=== PATIENT | female | born 1930 | race Caucasian/White ===

== ENCOUNTER → 2017-03-18 | Outpatient (CLI) | payer OTHER ==
[~2017-03-18] MED LIST: ATEN50TA8 PO; BENA40TA6 PO; FESO4TAB PO; HYDRTAB8 PO; IPRA0.03 INH; LEVO100T84 PO
[2017-03-18 13:20] LABS: URINE APPEARANCE TURBID (CLEAR); URINE BILIRUBIN NEG (NEG); URINE COLOR YELLOW; URINE EPITHELIAL CELL AUTO >30 /lpf (0-5); URINE NITRITE NEG (NEG); URINE PH 5.5 (4.5-7.5); URINE SPECIFIC GRAVITY 1.013 (1.000-1.030); UROBILINOGEN NEG (NEG)
[2017-03-18 13:33] LABS: MANUAL MICROSCOPIC REQUIRED? NO; REVIEW REQ? NO
== END | disposition home or self-care (01) ==
LOC: C.LABSPEC 12:15
PROVIDERS: ATTEND Internal Medicine Infectious Disease
DX: R32 Unspecified urinary incontinence (principal); N39.0 Urinary tract infection, site not specified

== ENCOUNTER 2018-01-26 07:47 | Day surgery (SDC) | payer OTHER ==
--- NOTE | 2018-01-25 10:26 | History and Physical ---
History & Physical Date of Service January 25, 2018. History & Physical 87-year-old female presents to the office for new patient evaluation with history of abnormal CT scan. PMHx includes: History of recurrent urinary tract infection and urinary incontinence. She is lifelong nonsmoker with exposure to significant secondhand exposure through her times 50 years. 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 She denies any history of pneumonia, hospitalization for respiratory failure, PE or DVT. She reports interval 42 she was diagnosed with asthma but she cannot recall any details of her symptoms and states that she believes that they resolved. She states that she was never prescribed any inhalers in the past. More recently patient was seen by her primary care physician October 2017 with approximately 6 month history of shortness of breath with exertion such as ambulating steps and doing housework. She reports symptoms tend to get worse over the preceding winter. She reports that triggers include walking quickly and ambulating her basement steps carrying laundry. she denies any associated chest pain, pleuritic pain or wheezing. She does report history of cough typically in the mornings associated rhinorrhea which resolved throughout the day. Patient workup included a chest x-ray followed by CT of the chest. The report and images for this study were reviewed and as below: CT 11/11/2017 describes scattered small mediastinal lymph nodes. Large airways are limited by motion artifact however appear patent. There are mild bilateral bronchiectatic changes with peribronchial thickening consistent with chronic airway inflammation. Multiple areas of air trapping are present throughout both lungs with areas of interstitial thickening and inflammation. The most prominent in the posterior lower lobes and right middle lobe. As above patient denies any personal history of tobacco use. She reports heavy secondhand exposure through her who smoked for approximately 50 years. She is a lifelong [place] resident with the exception of living for 1 and half years in [place] and [place]. She currently lives independently and has 3 dogs in her home. There is no mold or mildew. Her home is not been tested for Radon and she states her beauty salon had been located in her basement. Heat is electric. Patient denies any history of alcohol use. She denies any family history of lung disease. She does report personal history of breast cancer diagnosed 5-6 years ago treated with lumpectomy. Patient reports history of significant allergies and underwent allergy shots and testing approximately 20 years ago. She reports occasional symptoms of heartburn however states that this occurs only when she eats out and typically eats only bland foods when at home. Occupational History: Review of Systems Constitutional: negative. Eyes: negative. ENT: negative. Cardiovascular: no chest pain, no palpitations and no lower extremity edema. Respiratory: shortness of breath during exertion, but no shortness of breath, no cough, no orthopnea, no wheezing and no PND. Gastrointestinal: heartburn, but as noted in HPI and no abdominal pain. Hematologic/Lymphatic: negative. PmHx: 1. Chronic rhinitis 2. Bronchiectasis 3. History of breast carcinoma 4. Urinary incontinence 5. Family History 1. No pertinent family history Social History Never smoker Current Meds 1. Amlodipine Besy-Benazepril HCl - 5-10 MG Oral Capsule; 2. Aquasol A SOLN 3. Artificial Tears SOLN 4. Bentyl 10 MG Oral Capsule 5. Centrum Adults Oral Tablet; TAKE 1 TABLET DAILY 6. Cyanocobalamin 1000 MCG TABS 7. Estradiol 1 MG Oral Tablet; 8. FentaNYL PT72; 9. Flonase 50 MCG/ACT SUSP; 10. Hydrocodone-Acetaminophen TABS; 11. Levothyroxine Sodium TABS; 12. Methenamine Hippurate 1 GM Oral Tablet; Allergies 1. Penicillins Vital Signs Weight: 172 lb 4 oz BMI Calculated: 33.64 BSA Calculated: 1.75 Blood Pressure: 140 / 70, LUE, Sitting Temperature: 36.8 C, Oral Heart Rate: 63 Respiration Quality: Normal Respiration: 14 O2 Saturation: 96, RA FiO2: 21% FiO2, RA Constitutional: Well developed, well nourished elderly female. No acute distress. Head: + facial symmetry Eyes: EOMi, PERRLA, no conjunctival injection Mouth: Moist mucous membranes. No erythema, exudate, or post nasal gtt Neck: Trachea midline. No adenopathy or masses Respiratory: Non-labored respirations. No wheeze, rales or rhonchi. No clubbing or cyanosis. Cardiovascular: RRR, no MRG. +2 radial pulses. <1s capillary refill. Abdomen: soft, active bowel sounds Integumentary: no rashes, or ecchymosis MSK/Extremities: Moving and developed symmetrically. No peripheral edema. No calf tenderness. Neurologic: A&O, data recall in-tact. Appropriate affect.
[~2018-01-26] VITALS: Ht 152.4 cm; Wt 75.0 kg
[2018-01-26 08:23] LABS: BASO % 0.6 %; BASO ABS # 0.05 K/uL (0-0.2); EOS % 3.3 %; EOS ABS # 0.26 K/uL (0-0.5); HEMATOCRIT 37.7 % (37-47); HEMOGLOBIN 12.8 g/dL (12.0-16.0); IG# 0.02 K/uL (0.00-0.02); LYMPH % 24.1 %; LYMPH ABS # 1.91 K/uL (1.2-3.4); MEAN CELL VOLUME 92.2 fL (80-100); MEAN CORPUSCULAR HEMOGLOBIN 31.3 pg (25-34); MEAN PLATELET VOLUME 9.9 fL (7.4-10.4); MONO ABS # 0.71 K/uL (0.11-0.59); NEUT % 62.7 %; NEUT ABS # 4.98 K/uL (1.4-6.5); PLATELET COUNT 214 K/uL (130-400); RED CELL DISTRIBUTION WIDTH SD 44.1 fL (36.4-46.3); WHITE BLOOD COUNT 7.93 K/uL (4.8-10.8)
[2018-01-26] MEDS ORDERED: FNTTP50 TD (08:26)
[2018-01-26] MEDS ORDERED: MULT-1092 (08:27)
[2018-01-26] MEDS ORDERED: ASPI81TA28 PO (08:27)
[2018-01-26 08:30] VITALS: BP 165/85; PULSE 75; TEMP 36.6; O2SAT 96; Ht 152.4 cm; Wt 75.0 kg
[2018-01-26 08:33] LABS: INR 1.1 (0.9-1.1); PTT PATIENT 26.8 SECONDS (21.0-31.0)
[2018-01-26 08:41] LABS: BLOOD UREA NITROGEN 27 mg/dl (7-18); CALCIUM 9.2 mg/dl (8.5-10.1); CARBON DIOXIDE 26 mmol/L (21-32); CREATININE 1.27 mg/dl (0.60-1.20); GLUCOSE 99 mg/dl (70-99); POTASSIUM 3.4 mmol/L (3.5-5.1); SODIUM 138 mmol/L (136-145)
[2018-01-26] MEDS ORDERED: NURSING VERBAL MED ORDER ONE (09:00)
--- NOTE | 2018-01-26 09:15 | History & Physical Bridge Note ---
H&P Re-Evaluation Bridge Note: I have examined the patient, reviewed the History & Physical and in the interval since the performance of the History & Physical I have noted the following changes of clinical significance: No changes noted
--- NOTE | 2018-01-26 09:16 | Pre Sedation Assessment ---
Pre Sedation Assessment General Date of Sedation: January 26, 2018. Vital Signs Past 12 Hours Date Time Temp Pulse Resp B/P (MAP) Pulse Ox O2 Delivery O2 Flow Rate FiO2 01/26/18 08:30 36.6 75 18 165/85 (111) 96 Room Air Review Cardiovascular: + systolic murmur Lungs: + rales Pre-Sedation Airway Assessment Smoking Status: Never Smoker Hx of Sleep Apnea: No Hx of difficult intubation: No Short Thick Neck: No Thyro-mental Distance: > 3 Finger Breadths Oral Cavity: Dentures Mallampati Classification: Class II ASA Classification: Class II NPO Status Date of Last Intake of Fluids: January 25, 2018 Time of Last Intake of Fluids: 1899 Date of Last Intake of Solids: January 25, 2018 Time of Last Intake of Solids: 1899 Procedure Planning Contraindications for Sedation: None Current Medications Reviewed: Yes Notes The planned sedation has been discussed with the patient. Informed Consent was obtained. I have identified the patient, determined the appropriateness of sedation and have assessed the patient immediately prior to the procedure. All medicine(s) and interventions are by my order.
[2018-01-26] MEDS ORDERED: SODIUM CHLORIDE 0.9% 1000ML 1,000 ML IV SCH (09:45)
--- NOTE | 2018-01-26 09:52 | Post Sedation Assessment ---
Post Sedation Assessment General Date of Sedation January 26, 2018. Vital Signs: Vital Signs Past 12 Hours Date Time Temp Pulse Resp B/P (MAP) Pulse Ox O2 Delivery O2 Flow Rate FiO2 01/26/18 09:50 84 18 119/67 97 Mask 6 01/26/18 09:45 84 17 131/67 99 Mask 6 01/26/18 09:40 82 17 139/62 99 Mask 6 01/26/18 09:35 86 19 170/67 96 Mask 6 01/26/18 09:30 82 18 144/74 96 Mask 6 01/26/18 09:25 84 18 156/65 96 Room Air 01/26/18 09:20 84 16 156/65 96 Room Air 01/26/18 08:30 36.6 75 18 165/85 (111) 96 Room Air Post Procedure Recovery Score Activity: (2) Moves 4 extremities * Respiration: (2) Deep breath/cough Circulation: (2) +/-20% PreAnes Value Consciousness: (2) Fully Awake Oxygen Saturation: (1) O2 needed for >90% Post Anesthesia Score: 9 Discharge Sedation Level of Care: Fast Track Phase II Post Sedation Plan On clinical assessment, the patient appears to have tolerated the sedation without complications. Patient is recovering as anticipated. Patient will continue to be monitored by nursing and may be discharged when sedation discharge criteria are met per below protocol. Upon Completions of procedure and additional 15 minutes continue every 5 minute vital signs and the P.A.R. score; then discharge to a Phase I or Fast Track to Phase II per the following guidelines: * Discharge Patient to appropriate Phase II area if PAR is 8 or greater or return to pre- procedure baseline. The post - procedure orders will be as directed. * If PAR score is less than 8 or not return to pre-procedure baseline then patient will follow Phase I monitoring till PAR is reached for Phase II. The Phase I may be done in procedure room or may call to secure a Phase I area. * If naloxone or flumazenil are used for reversal, hold in Phase I for an additional 60 -120 minutes before discharge to Phase II. Please call the Sedation Physician to re-evaluate and complete post-note for discharge to Phase II area. Do NOT discharge from procedure sedation or Phase 1 until post- sedation evaluation note is complete by procedure /sedation MD Sedation Discharge Instructions to be given to the patient at discharge to home.
[2018-01-26] MEDS ORDERED: MIDAZOLAM HCL 5 MG/ML 1 ML VIAL IV ONE (09:53)
[2018-01-26] MEDS ORDERED: FENTANYL CITRATE INJ 50 MCG/1 ML 2 ML VIAL IV ONE (09:53)
[2018-01-26] MEDS ORDERED: LIDOCAINE VISCOUS 2% 100ML TOP ONE (09:53)
[2018-01-26] MEDS ORDERED: LIDOCAINE 4% INH SOLN 4 ML BTL TOP ONE (09:53)
--- NOTE | 2018-01-26 09:56 | Bronchoscopy Procedure Note ---
Bronchoscopy Procedure Note Procedure: Bronchoscopy, conscious sedation, bronchial lavage Consent: Obtained through the patient placed into the chart Pre-procedural diagnosis: Interstitial lung disease Post-procedural diagnosis: Rhinitis and interstitial lung disease Start time: 939 End time: 947 Total time: 8 minutes Analgesia: 2% liquid lidocaine: Via nebulizer 4% gel lidocaine: Via right naris 2% liquid lidocaine: Via bronchoscopy Sedation: Versed IV: 3mg Fentanyl IV: 50g Procedure: The Olympus video bronchoscope was used for this procedure and passed down through the right naris but then removed and passed out to the left naris Right Naris: Some mild erythema but notable edema unable to pass the flexible scope without discomfort to the patient Left Naris: Some mild erythema and edema but able to pass the bronchoscope comfortably through the left naris Posterior Naris: Diffuse naris secretions as well as a localized crusted secretion which was removed and diffuse erythema along the posterior naris wall Posterior oropharynx: Some mild erythema and associated cobblestoning Glottis: Anatomically within normal limits Vocal cords: Proper abduction and abduction, anatomically within normal limits Subglottis: Anatomically within normal limits Trachea: Some mild tracheal calcifications especially on the anterior tracheal rings Sandy: Anatomically within normal limits Right bronchial tree: Right mainstem bronchus: Anatomically within normal limits Right upper lobe: Anatomically within normal limits Bronchus intermedius: Anatomically within normal limits Right middle lobe: Anatomically within normal limits Right lower lobe: Anatomically within normal limits Findings: No significant findings noted Left bronchial tree: Left mainstem bronchus: Anatomically within normal limits Left upper lobe: Anatomically within normal limits Lingula: Anatomically within normal limits Left lower lobe: Anatomically within normal limits Findings: No significant findings noted Bronchial alveolar lavage: Right upper lobe EBL: None Complications: None Follow-up: ASU
--- NOTE | 2018-01-26 09:59 | Discharge Instructions ---
Discharge Instructions Date of Service January 26, 2018. Admission Reason for Admission: Shortness Of Breath Discharge Discharge Diagnosis / Problem: Interstitial lung fibrosis and rhinitis Discharge Goals Goal(s): Diagnostic testing Activity Recommendations Activity Limitations: resume your previous activity Exercise/Sports Limitations: as tolerated Shower/Bathe: tomorrow Driving or Machine Use: resume 1 day after discharge . Instructions / Follow-Up Instructions / Follow-Up Follow-up with the [facility] pulmonary clinic at your next scheduled appointment Current Hospital Diet Patient's current hospital diet: Discharge Diet Recommended Diet: Regular Diet Procedures Procedures Performed: Bronchoscopy, conscious sedation, bronchial lavage of the right upper lobe Pending Studies Studies pending at discharge: no Medical Emergencies . Who to Call and When: Medical Emergencies: If at any time you feel your situation is an emergency, please call 911 immediately. . Non-Emergent Contact Non-Emergency issues call your: Director Global Strategic Publisher Sales Call Non-Emergent contact if: you have a fever, temperature is above 101 . . "Provider Documentation" section prepared by Tj Mendieta. .
[2018-01-26 10:10] VITALS: BP 139/69; PULSE 83; TEMP 36.6; O2SAT 98
[2018-01-26 10:25] VITALS: BP 117/72; PULSE 73; O2SAT 97
[2018-01-26 11:06] VITALS: BP 130/62; PULSE 73; O2SAT 94
[2018-01-26 11:34] VITALS: BP 133/73; PULSE 72; TEMP 37.1; O2SAT 95
[2018-01-26 12:20] VITALS: BP 140/64; PULSE 77; TEMP 37.1; O2SAT 94
== END 2018-01-26 12:44 | disposition home or self-care (01) ==
LOC: C.ACU 07:47
PROVIDERS: ATTEND Internal Medicine Critical Care Medicine
DX: J84.9 Interstitial pulmonary disease, unspecified (principal); J31.0 Chronic rhinitis; R91.8 Other nonspecific abnormal finding of lung field; Z77.22 Contact with and (suspected) exposure to environmental tobacco smoke (acute) (chronic); Z85.3 Personal history of malignant neoplasm of breast; Z79.899 Other long term (current) drug therapy; Z88.0 Allergy status to penicillin

== ENCOUNTER → 2018-03-31 | Outpatient (CLI) | payer OTHER ==
[~2018-03-31] MED LIST changes: +ASPI81TA28 PO; -ATEN50TA8 PO; -FESO4TAB PO; +FNTTP50 TD; +MULT-1092
[2018-03-31 12:06] LABS: INR 1.1 (0.9-1.1); PTT PATIENT 27.8 SECONDS (21.0-31.0)
== END | disposition home or self-care (01) ==
LOC: C.LAB1850 09:17
PROVIDERS: ATTEND Physician Assistant
DX: R06.02 Shortness of breath (principal); J47.9 Bronchiectasis, uncomplicated